=== PATIENT | female | born 1945 | race American Indian/Alaskan Native ===

== ENCOUNTER 2021-01-27 09:25 | Emergency (ER) | payer MEDICARE, MEDICAID ==
[~2021-01-27] VITALS: Ht 167.6 cm; Wt 47.7 kg
[~2021-01-27 09:25] MED LIST: ASPI-612 PO; ATOR10TA87 PO; CHOL100046 PO; CYAN100070 PO; GLIM4TAB42 PO; IRON150C5 PO; LEVO75TA57 PO; LOSA1TAB36 PO; PIOG15TA8 PO; SITA1TBM4 PO
[2021-01-27 10:53] VITALS: BP 139/94
== END 2021-01-27 17:41 | disposition left against medical advice (07) ==
LOC: ER 09:26
DX: M25.531 Pain in right wrist (principal); Z53.21 Procedure and treatment not carried out due to patient leaving prior to being seen by health care provider

== ENCOUNTER 2022-03-01 07:48 | Day surgery (SDC) | payer MEDICARE, MEDICAID ==
[2022-03-01] VITALS (9 sets, daily range): BP systolic 109–162; BP diastolic 53–87
[~2022-03-01] VITALS: Ht 167.6 cm; Wt 102.2 kg
[2022-03-01] MEDS ORDERED: diphenhydrAMINE 25mg capsule PO ONE (08:15)
[2022-03-01] MEDS ORDERED: MIDAZolam 1mg/ml 10ml vial IV ONE (08:15)
[2022-03-01] MEDS ORDERED: amiodarone 150mg/dext, iso-os 100 ML IV ONE (08:15)
[2022-03-01] MEDS ORDERED: atropine 0.1mg/ml 10ml syringe IV ONE (08:15)
[2022-03-01] MEDS ORDERED: morphine 10mg/ml inj. IV ONE (08:15)
[2022-03-01] MEDS ORDERED: LORazepam 0.5 MG tablet PO ONE (08:15)
[2022-03-01] MEDS ORDERED: AMIO200T61 (08:42)
[2022-03-01] MEDS ORDERED: ATOR20TA66 PO (08:42)
[2022-03-01] MEDS ORDERED: POTA8TAB69 PO (08:42)
[2022-03-01] MEDS ORDERED: SITA1TAB6 PO (08:42)
[2022-03-01] MEDS ORDERED: DILT-35 (08:42)
[2022-03-01] MEDS ORDERED: FURO20TA4 PO (08:42)
[2022-03-01] MEDS ORDERED: LEVO100T9 (08:42)
[2022-03-01] MEDS ORDERED: Vitamin B12 PO (08:45)
[2022-03-01 08:50] LABS: BASOPHILS # (AUTO) 0.1 X10'3 (0-0.2); BASOPHILS % (AUTO) 0.8 % (0-1); EOSINOPHILS # (AUTO) 0.1 X10'3 (0-0.9); EOSINOPHILS % (AUTO) 1.2 % (0-6); HEMATOCRIT 28.9 % (35.0-45.0); HEMOGLOBIN 9.5 g/dl (12.0-16.0); LYMPHOCYTES # (AUTO) 1.5 X10'3 (1.1-4.8); LYMPHOCYTES % (AUTO) 17.6 % (21-51); MEAN CORPUSCULAR HEMOGLOBIN 27.5 PG (27.0-31.0); MEAN CORPUSCULAR HGB CONC 32.8 g/dL (33.0-36.5); MEAN CORPUSCULAR VOLUME 83.7 FL (78-98); MEAN PLATELET VOLUME 9.4 FL (7.4-10.4); MONOCYTES % (AUTO) 12.1 % (2-12); NEUTROPHILS # (AUTO) 5.7 X10'3 (1.8-7.7); NEUTROPHILS % (AUTO) 68.3 % (42-75); PLATELET COUNT 208 X10'3 (140-440); RED BLOOD COUNT 3.45 X10'6 (4.20-5.60); RED CELL DISTRIBUTION WIDTH 16.3 % (11.5-14.5); WHITE BLOOD COUNT 8.4 X10'3 (4.5-11.0)
[2022-03-01 08:56] LABS: ALBUMIN 3.3 G/DL (3.4-5.0); ANION GAP 10 (8-16); BLOOD UREA NITROGEN 31 MG/DL (7-18); BUN/CREATININE RATIO 18.8 (6.6-38.0); CALCIUM 8.7 MG/DL (8.5-10.1); CHLORIDE 103 MMOL/L (99-107); CREATININE 1.65 MG/DL (0.40-0.90); GLUCOSE 213 MG/DL (70-104); POTASSIUM 4.2 MMOL/L (3.5-5.1); SODIUM 137 MMOL/L (135-145); TOTAL CARBON DIOXIDE 24.5 MMOL/L (24-32); eGFR 30 ML/MIN
[2022-03-01] MEDS ORDERED: APIX5TAB3 PO (08:58)
== END 2022-03-01 12:30 | disposition home or self-care (01) ==
LOC: SSTAY O 07:48
PROVIDERS: ATTEND Internal Medicine Cardiovascular Disease
DX: I48.19 Other persistent atrial fibrillation (principal); I48.0 Paroxysmal atrial fibrillation; I11.0 Hypertensive heart disease with heart failure; E11.9 Type 2 diabetes mellitus without complications; I50.22 Chronic systolic (congestive) heart failure; G47.30 Sleep apnea, unspecified; E78.5 Hyperlipidemia, unspecified; Z79.899 Other long term (current) drug therapy; Z98.49 Cataract extraction status, unspecified eye; Z98.890 Other specified postprocedural states
CPT/HCPCS: 36415; 80048; 82948; 85025; 85610; 92960; 93005; J2250; J2274; J7030; A4620

== ENCOUNTER 2022-05-12 10:02 | Outpatient (CLI) | payer MEDICARE, MEDICAID ==
[~2022-05-12 10:02] MED LIST changes: +AMIO200T61; +APIX5TAB3 PO; -ASPI-612 PO; -ATOR10TA87 PO; +ATOR20TA66 PO; -CYAN100070 PO; +DILT-35; +FURO20TA4 PO; -GLIM4TAB42 PO; +LEVO100T9; -LEVO75TA57 PO; -LOSA1TAB36 PO; -PIOG15TA8 PO; +POTA8TAB69 PO; +SITA1TAB6 PO; -SITA1TBM4 PO; +Vitamin B12 PO
[2022-05-12 10:29] LABS: TOTAL HEMOGLOBIN 13.6 G/dl (12.0-16.0)
== END 2022-05-12 23:59 | disposition home or self-care (01) ==
LOC: RT 10:02
PROVIDERS: ATTEND Internal Medicine Cardiovascular Disease
DX: R06.02 Shortness of breath (principal); Z79.899 Other long term (current) drug therapy
CPT/HCPCS: 85018; 94010; 94727; 94729

== ENCOUNTER 2024-01-18 07:26 | Day surgery (SDC) | payer MEDICARE, MEDICAID ==
[2024-01-17 13:07] LABS: BASOPHILS % (AUTO) 0.5 % (0-1); EOSINOPHILS # (AUTO) 0.1 X10'3 (0-0.9); EOSINOPHILS % (AUTO) 0.8 % (0-6); HEMATOCRIT 32.5 % (35.0-45.0); HEMOGLOBIN 10.9 g/dl (12.0-16.0); LYMPHOCYTES # (AUTO) 2.3 X10'3 (1.1-4.8); LYMPHOCYTES % (AUTO) 26.7 % (21-51); MEAN CORPUSCULAR HEMOGLOBIN 29.6 PG (27.0-31.0); MEAN CORPUSCULAR HGB CONC 33.4 g/dL (33.0-36.5); MEAN CORPUSCULAR VOLUME 88.6 FL (78-98); MONOCYTES # (AUTO) 0.9 X10'3 (0-0.9); NEUTROPHILS # (AUTO) 5.4 X10'3 (1.8-7.7); PLATELET COUNT 221 X10'3 (140-440); RED BLOOD COUNT 3.67 X10'6 (4.20-5.60); RED CELL DISTRIBUTION WIDTH 15.3 % (11.5-14.5); WHITE BLOOD COUNT 8.7 X10'3 (4.5-11.0)
[2024-01-17 13:11] LABS: ALBUMIN 3.4 G/DL (3.4-5.0); ANION GAP 10 (8-16); BLOOD UREA NITROGEN 40 MG/DL (7-18); BUN/CREATININE RATIO 19.3 (10.0-20.0); CALCIUM 9.1 MG/DL (8.5-10.1); CHLORIDE 103 MMOL/L (99-107); CREATININE 2.07 MG/DL (0.40-0.90); GLUCOSE 154 MG/DL (70-104); POTASSIUM 4.7 MMOL/L (3.5-5.1); SODIUM 135 MMOL/L (135-145); TOTAL CARBON DIOXIDE 22.1 MMOL/L (24-32); eGFR 23 ML/MIN
[2024-01-17 13:13] LABS: INR 1.1 INR
[~2024-01-18] VITALS: Ht 182.9 cm; Wt 85.6 kg
[2024-01-18] VITALS (8 sets, daily range): BP systolic 112–136; BP diastolic 46–64; PULSE 54–64; RESP 10–12; TEMP 98.2; O2SAT 96–100
[~2024-01-18 07:26] MED LIST changes: +AMI200T; -AMIO200T61
[2024-01-18] MEDS ORDERED: atropine 0.1mg/ml 10ml syringe IV ONE (07:45)
[2024-01-18] MEDS ORDERED: amiodarone 150mg/dext, iso-os 100 ML IV ONE (07:45)
[2024-01-18] MEDS: normal saline 1000ml 1,000 ML IV SCH (07:45)
[2024-01-18] MEDS ORDERED: LORazepam 0.5 MG tablet PO ONE (07:45)
[2024-01-18] MEDS ORDERED: diphenhydrAMINE 25mg capsule PO ONE (07:45)
[2024-01-18] MEDS ORDERED: AMI200T PO (07:56)
[2024-01-18] MEDS: morphine 10mg/ml inj. IV ONE (09:04)
[2024-01-18] MEDS: MIDAZolam 1mg/ml 10ml vial IV ONE (09:04)
== END 2024-01-18 10:30 | disposition home or self-care (01) ==
LOC: SSTAY O 07:26
PROVIDERS: ATTEND Internal Medicine Cardiovascular Disease
DX: I48.0 Paroxysmal atrial fibrillation (principal); I44.7 Left bundle-branch block, unspecified; I48.92 Unspecified atrial flutter; I11.0 Hypertensive heart disease with heart failure; I50.32 Chronic diastolic (congestive) heart failure; E11.9 Type 2 diabetes mellitus without complications; E78.5 Hyperlipidemia, unspecified; G47.33 Obstructive sleep apnea (adult) (pediatric); Z79.01 Long term (current) use of anticoagulants; Z79.890 Hormone replacement therapy; Z79.899 Other long term (current) drug therapy; Z98.49 Cataract extraction status, unspecified eye; Z98.891 History of uterine scar from previous surgery; Z98.890 Other specified postprocedural states
CPT/HCPCS: 36415; 80048; 82948; 85025; 85610; 92960; 93005; J2250; J2270; J7030; J2274

== ENCOUNTER 2024-06-25 14:40 | Emergency (ER) | payer MEDICARE, MEDICAID ==
[~2024-06-25] VITALS: Ht 167.6 cm; Wt 75.8 kg
[~2024-06-25 14:40] MED LIST changes: -AMI200T; +AMI200T PO; -CHOL100046 PO; -IRON150C5 PO; -Vitamin B12 PO
[2024-06-25 15:06] VITALS: TEMP 99.4
[2024-06-25 21:23] LABS: BASOPHILS % (AUTO) 0.3 % (0-1); EOSINOPHILS # (AUTO) 0.1 X10'3 (0-0.9); EOSINOPHILS % (AUTO) 1.1 % (0-6); HEMATOCRIT 25.4 % (35.0-45.0); HEMOGLOBIN 8.6 g/dl (12.0-16.0); LYMPHOCYTES # (AUTO) 1.2 X10'3 (1.1-4.8); LYMPHOCYTES % (AUTO) 10.1 % (21-51); MEAN CORPUSCULAR HEMOGLOBIN 30.1 PG (27.0-31.0); MEAN CORPUSCULAR HGB CONC 33.6 g/dL (33.0-36.5); MEAN CORPUSCULAR VOLUME 89.6 FL (78-98); MONOCYTES # (AUTO) 1.3 X10'3 (0-0.9); MONOCYTES % (AUTO) 10.7 % (2-12); NEUTROPHILS # (AUTO) 9.2 X10'3 (1.8-7.7); NEUTROPHILS % (AUTO) 77.8 % (42-75); PLATELET COUNT 225 X10'3 (140-440); RED BLOOD COUNT 2.84 X10'6 (4.20-5.60); RED CELL DISTRIBUTION WIDTH 14.5 % (11.5-14.5); WHITE BLOOD COUNT 11.8 X10'3 (4.5-11.0)
[2024-06-25] MEDS: acetaminophen 325mg tablet PO STA (21:30)
[2024-06-25] MEDS: ketorolac trometh 15mg/ml vial 15 MG/ML ML IV STA (21:30)
[2024-06-25 21:39] LABS: ALANINE AMINOTRANSFERASE 41 U/L (12-78); ALBUMIN 2.5 G/DL (3.4-5.0); ALBUMIN/GLOBULIN RATIO 0.6 (1.1-1.5); ALKALINE PHOSPHATASE 98 IU/L (46-116); ANION GAP 9 (8-16); ASPARTATE AMINO TRANSFERASE 26 U/L (10-37); BILIRUBIN,TOTAL 0.5 MG/DL (0.1-1.0); BLOOD UREA NITROGEN 55 MG/DL (7-18); BUN/CREATININE RATIO 20.4 (10.0-20.0); CALCIUM 8.7 MG/DL (8.5-10.1); CHLORIDE 102 MMOL/L (99-107); CREATININE 2.69 MG/DL (0.40-0.90); GLUCOSE 148 MG/DL (70-104); POTASSIUM 4.5 MMOL/L (3.5-5.1); SODIUM 138 MMOL/L (135-145); TOTAL CARBON DIOXIDE 27.3 MMOL/L (24-32); TOTAL PROTEIN 6.8 G/DL (6.4-8.2); eCRCL 16 ML/MIN; eGFR 17 ML/MIN
[2024-06-25] MEDS: normal saline 1000ml 1,000 ML IV STA (22:24)
[2024-06-25 23:30] VITALS: BP 132/68; PULSE 62; RESP 16; O2SAT 98
== END 2024-06-26 | disposition home or self-care (01) ==
LOC: ER 14:41
DX: R51.9 Headache, unspecified (principal); E11.42 Type 2 diabetes mellitus with diabetic polyneuropathy; E11.22 Type 2 diabetes mellitus with diabetic chronic kidney disease; N18.9 Chronic kidney disease, unspecified; Z98.890 Other specified postprocedural states; Z79.899 Other long term (current) drug therapy
CPT/HCPCS: 36415; 70450; 80053; 82948; 85025; 96361; 96374; 99285; J1885; J7030

== ENCOUNTER 2024-08-07 23:51 | Observation (INO) | payer MEDICARE, MEDICAID ==
[~2024-08-07] VITALS: Ht 167.6 cm; Wt 97.0 kg
[2024-08-08] VITALS (16 sets, daily range): BP systolic 104–175; BP diastolic 44–70; PULSE 59–63; RESP 13–18; TEMP 98.6; O2SAT 92–98
[2024-08-08 00:39] LABS: BASOPHILS % (AUTO) 0.4 % (0-1); EOSINOPHILS # (AUTO) 0.1 X10'3 (0-0.9); HEMATOCRIT 23.8 % (35.0-45.0); LYMPHOCYTES # (AUTO) 1.5 X10'3 (1.1-4.8); LYMPHOCYTES % (AUTO) 23.1 % (21-51); MEAN CORPUSCULAR HEMOGLOBIN 29.3 PG (27.0-31.0); MEAN CORPUSCULAR HGB CONC 33.4 g/dL (33.0-36.5); MEAN CORPUSCULAR VOLUME 87.9 FL (78-98); MEAN PLATELET VOLUME 8.9 FL (7.4-10.4); MONOCYTES % (AUTO) 14.6 % (2-12); NEUTROPHILS % (AUTO) 59.9 % (42-75); PLATELET COUNT 209 X10'3 (140-440); RED BLOOD COUNT 2.71 X10'6 (4.20-5.60); RED CELL DISTRIBUTION WIDTH 15.1 % (11.5-14.5); WHITE BLOOD COUNT 6.7 X10'3 (4.5-11.0)
[2024-08-08 00:49] LABS: ALANINE AMINOTRANSFERASE 20 U/L (12-78); ALBUMIN 3.1 G/DL (3.4-5.0); ALBUMIN/GLOBULIN RATIO 0.8 (1.1-1.5); ALKALINE PHOSPHATASE 99 IU/L (46-116); ANION GAP 7 (8-16); ASPARTATE AMINO TRANSFERASE 17 U/L (10-37); BILIRUBIN,TOTAL 0.3 MG/DL (0.1-1.0); BLOOD UREA NITROGEN 49 MG/DL (7-18); CALCIUM 8.9 MG/DL (8.5-10.1); CHLORIDE 103 MMOL/L (99-107); CREATININE 2.33 MG/DL (0.40-0.90); GLUCOSE 78 MG/DL (70-104); POTASSIUM 3.5 MMOL/L (3.5-5.1); SODIUM 138 MMOL/L (135-145); TOTAL CARBON DIOXIDE 28.3 MMOL/L (24-32); TOTAL PROTEIN 7.2 G/DL (6.4-8.2); eCRCL 18 ML/MIN; eGFR 20 ML/MIN
[2024-08-08 00:56] LABS: APTT 26 SECONDS (22-32); PROTHROMBIN TIME 10.8 SECONDS (9.0-12.0)
[2024-08-08 00:57] LABS: MAGNESIUM 1.6 MG/DL (1.5-2.4); PRO BRAIN NATRIURETIC PEPTIDE 564 PG/ML (0-450)
[2024-08-08] MEDS: normal saline 1000ml 1,000 ML IV ONE (03:30)
[2024-08-08] MEDS ORDERED: LANTUS SQ (04:17)
[2024-08-08] MEDS ORDERED: INSU100I8 SQ (04:17)
[2024-08-08] MEDS ORDERED: magnesium sulf-water 2g/50mL 50 ML IV PRN (04:25)
[2024-08-08] MEDS ORDERED: magnesium sulf-water 4G/100mL 100 ML IV PRN (04:25)
[2024-08-08] MEDS ORDERED: magnesium hydroxide 30ml (MOM) UD suspension PO PRN (04:25)
[2024-08-08] MEDS ORDERED: ondansetron/PF 4mg/2ml inj IV PRN (04:25)
[2024-08-08] MEDS ORDERED: potassium Cl 20 mEq SR tablet PO PRN ×2 (04:25)
[2024-08-08] MEDS ORDERED: acetaminophen 325mg tablet PO PRN (04:25)
[2024-08-08] MEDS ORDERED: magnesium Cl slow-release 64mg tablet PO PRN (04:25)
[2024-08-08] MEDS ORDERED: mag hydrox/Alum hydrox/simeth 30ml oral suspension PO PRN (04:25)
[2024-08-08] MEDS ORDERED: potassium Cl 40MEQ/1/2NS 520ml 520 ML IV PRN (04:25)
[2024-08-08 05:46] LABS: BILIRUBIN,URINE NEGATIVE (Neg); CLARITY,URINE CLEAR (Clear); COLOR,URINE YELLOW (Yellow); GLUCOSE, URINE NEGATIVE (Neg); KETONES,URINE NEGATIVE (Neg); LEUKOCYTE ESTERASE ,URINE TRACE (Neg); NITRITES, URINE NEGATIVE (Neg); OCCULT BLOOD,URINE NEGATIVE (Neg); PROTEIN,URINE NEGATIVE (Neg); UROBILINOGEN,URINE 0.2 E.U/dL (0.2-1.0)
[2024-08-08 05:56] LABS: UA COLLECTION TYPE CLN CATCH MIDSTREAM
[2024-08-08 05:58] LABS: BACTERIA,URINE FEW /HPF (Neg); MUCUS STRANDS NONE SEEN /LPF (Neg); RBC,URINE NONE SEEN /HPF (0-2); SQUAMOUS EPITHELIAL CELL,UR FEW /LPF (FEW)
[2024-08-08] MEDS: CefTRIAXone 2gm/D5W 50ml BAG 50 ML IV ONE (06:55)
[2024-08-08] MEDS: FOSFOMYCIN TROMETHAMINE 3 GM PACKET PO ONE (06:55)
[2024-08-08] MEDS ORDERED: fentaNYL/PF 50MCG/1 ML 2ML syringe ONE (07:30)
[2024-08-08] MEDS ORDERED: LIDOcaine 1% W/epiNEPHrine 1:100,000 20ml vial ONE (07:30)
[2024-08-08] MEDS ORDERED: midazolam 1 mg/ML 2ml injection ONE (07:30)
[2024-08-08] MEDS ORDERED: ceFAZolin 1000mg inj ONE (07:30)
[2024-08-08] MEDS: docusate sod 100mg capsule PO SCH (08:00)
[2024-08-08] MEDS: K and/or MAG REPLACEMENT MC SCH (08:00)
[2024-08-08] MEDS ORDERED: CefTRIAXone/D5W-Rocephin 1gm 50 ML IV SCH (08:35)
[2024-08-08] MEDS ORDERED: atorvastatin 20mg tablet PO SCH (08:50)
[2024-08-08] MEDS ORDERED: levoTHYROXINE 100mcg tablet PO SCH (08:50)
[2024-08-08] MEDS ORDERED: diphenhydrAMINE 50 mg/ml inj ONE (09:06)
[2024-08-08] MEDS ORDERED: atorvastatin 10mg tablet PO SCH (09:09)
[2024-08-08] MEDS ORDERED: atorvastatin 10mg tablet PO ONE (09:15)
[2024-08-08] MEDS ORDERED: HYDROcodone/acetaminophen 5mg/325mg tablet PO PRN (10:40)
[2024-08-08] MEDS ORDERED: HYDROcodone/acetaminophen 10/325mg tab PO PRN (10:40)
[2024-08-08] MEDS: vancomycin/NS 1 GM ADD-VANTAGE 250 ML IV ONE (11:12)
[2024-08-08] MEDS ORDERED: AMI200T PO (13:39)
[2024-08-08] MEDS ORDERED: DILT-35 PO (13:39)
[2024-08-08] MEDS ORDERED: CEPH-585 PO (16:55)
[2024-08-09] MEDS ORDERED: furosemide 20MG tablet PO SCH (08:00)
== END 2024-08-08 17:00 | disposition home or self-care (01) ==
LOC: ER 23:52 → ED HOLD 08-08 04:26 → UNDOADMIN 08-08 04:26 → ED HOLD 08-08 10:16 → S STAY 08-08 10:16 → INTOOBSV 08-08 12:01 → S STAY 08-08 12:01 → UNDOADMOB 08-08 12:01 → S STAY 08-08 17:00 → UNDODISOB 08-08 17:00 → UNDODISIN 08-08 17:00
PROVIDERS: ADMIT Internal Medicine Pulmonary Disease; ATTEND Family Medicine
DX: I49.5 Sick sinus syndrome (principal); N30.00 Acute cystitis without hematuria; E11.649 Type 2 diabetes mellitus with hypoglycemia without coma; E11.22 Type 2 diabetes mellitus with diabetic chronic kidney disease; N18.9 Chronic kidney disease, unspecified; E11.42 Type 2 diabetes mellitus with diabetic polyneuropathy; R06.89 Other abnormalities of breathing; Z79.01 Long term (current) use of anticoagulants; Z79.899 Other long term (current) drug therapy; Z79.84 Long term (current) use of oral hypoglycemic drugs
CPT/HCPCS: 33208; 36415; 71045; 71046; 80048; 80053; 81001; 82948; 83735; 83880; 84484; 85025; 85610; 85730; 87088; 93005; 96365; 96367; 99285; C1785; G0378; J0690; J0696; J1200; J2250; J3010; J3370; J3490; J7030; 99152; 99153; A4565; A6258; A6449; C1898